=== PATIENT | male | born 1935 | race Caucasian/White ===

== ENCOUNTER → 2019-06-12 11:54 | Outpatient (CLI) | payer MEDICARE, SELFPAY ==
--- NOTE | ~2019-06-12 | XR_ITS ---
XR lumbar spine 2-3V 06/12/2019 12:23 Indication: Low back pain. Procedure: 3 views lumbar spine Comparison: No prior studies for comparison. Findings: There is disc narrowing at L1-2, L3-4, L4-5 and L5-S1. Vertebral body heights are maintaine d. There is moderate lower facet hypertrophy. There is grade 1 spondylolisthesis at L5-S1. Osteopenia . Sacral foramen are symmetric. Impression: 1: Moderate lumbar spondylosis with grade 1 spondylolisthesis at L5-S1. Reviewed, dictated and finalized at location A. [employer]MENT [employer] Impression: 1: Moderate lumbar spondylosis with grade 1 spondylolisthesis at L5-S1.
--- NOTE | ~2019-06-12 | XR_ITS ---
XR chest 2V 06/12/2019 12:23 Indication: Low back pain. Asbestos exposure. Procedure: 2 view chest Comparison: 05/10/2017 Findings: Stable chronic bilateral calcified pleural plaques, consistent with asbestos exposure. Clin ical transfixed by side plate and screws. No acute focal pneumonia, edema or effusion. No acute osseo us abnormality. Impression: 1: No acute cardiopulmonary disease. Reviewed, dictated and finalized at location A. 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
--- NOTE | ~2019-06-12 | XR_ITS ---
XR abdomen/kub 1V 06/12/2019 12:23 Indication: Low back pain. Abdomen pain. Procedure: KUB Comparison: 08/03/2016 Findings: Bowel gas pattern is nonobstructive. Moderate colonic fecal loading. Calcified pleural plaq ues, consistent with previous asbestos exposure. Mild lumbar spondylosis. Ossifications left upper ab domen, likely calcified lymph nodes. Impression: 1: No acute abdominal abnormality. Reviewed, dictated and finalized at location A. 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
== END ==
PROVIDERS: PCP Internal Medicine; Visit Provider Internal Medicine
DX: M43.17 Spondylolisthesis, lumbosacral region (principal); M47.816 Spondylosis without myelopathy or radiculopathy, lumbar region; J92.9 Pleural plaque without asbestos; N20.0 Calculus of kidney
CPT/HCPCS: 71046; 72100; 74018